=== PATIENT | female | born 1990 | race Caucasian/White ===

== ENCOUNTER 2020-08-30 20:09 | Inpatient (IN) | payer OTHER ==
[~2020-08-30] VITALS: Ht 170.2 cm; Wt 82.1 kg
[~2020-08-30 20:09] MED LIST: LEVAQUIN750 MG PO; NAPROSYN500 MG PO; ZOFRAN4 MG PO
[2020-08-30 21:02] LABS: HEMOGLOBIN 11.3 gm/dl (12.3-15.3); RED BLOOD COUNT 4.01 M/UL (4.00-5.10); WHITE BLOOD COUNT 17.5 K/UL (4.5-11.0)
[2020-08-30 21:15] LABS: BUN/CREATININE RATIO 16 (0-10)
[2020-08-31 05:07] LABS: HEMOGLOBIN 10.6 gm/dl (12.3-15.3); RED BLOOD COUNT 3.72 M/UL (4.00-5.10); WHITE BLOOD COUNT 14.5 K/UL (4.5-11.0)
[2020-08-31 05:35] LABS: BUN/CREATININE RATIO 15 (0-10)
[2020-08-31] MEDS ORDERED: VITAMIN B-121000 MC2 SL (10:12)
[2020-08-31] MEDS ORDERED: OMEGA 3 1,0001 EACH PO (10:12)
[2020-09-01 06:27] LABS: HEMOGLOBIN 11.6 gm/dl (12.3-15.3); RED BLOOD COUNT 4.08 M/UL (4.00-5.10); WHITE BLOOD COUNT 11.5 K/UL (4.5-11.0)
[2020-09-01 07:11] LABS: BUN/CREATININE RATIO 10 (0-10)
[2020-09-03 09:04] LABS: BUN/CREATININE RATIO 11 (0-10)
[2020-09-04 06:22] LABS: HEMOGLOBIN 11.4 gm/dl (12.3-15.3); RED BLOOD COUNT 4.06 M/UL (4.00-5.10); WHITE BLOOD COUNT 9.7 K/UL (4.5-11.0)
[2020-09-04 06:48] LABS: BUN/CREATININE RATIO 16 (0-10)
[2020-09-04] MEDS ORDERED: BACTRIM DS TAB1 EACH PO (12:35)
== END 2020-09-04 14:39 | disposition home or self-care (01) | DRG 581 ==
LOC: ER1 20:09 → MED SURG 4 08-31 02:59 → ZEROF 08-31 02:59 → MED SURG 4 08-31 14:10
PROVIDERS: Emergency Medicine; Internal Medicine; Surgery; ADMIT Internal Medicine
PROC: 0J9G0ZZ Drainage of Right Lower Arm Subcutaneous Tissue and Fascia, Open Approach (ICD-10-PCS; principal; 2020-09-01 11:03)
DX: L03.113 Cellulitis of right upper limb (principal); L02.413 Cutaneous abscess of right upper limb; Z89.221 Acquired absence of right upper limb above elbow; F17.210 Nicotine dependence, cigarettes, uncomplicated; F15.90 Other stimulant use, unspecified, uncomplicated; E83.41 Hypermagnesemia; E87.6 Hypokalemia; D64.89 Other specified anemias; L03.114 Cellulitis of left upper limb
CPT/HCPCS: ECHO; 36415; 71045; 73201; 80048; 80053; 80202; 81001; 83036; 83605; 83735; 84100; 84703; 85025; 85610; 85652; 86140; 87040; 87070; 87077; 87086; 87186; 87205; 93306; 93971; 96365; 96366; 96368; 96376; 99285; C1751; J0171; J1885; J2001; J2250; J2270; J2405; J2543; J2704; J3010; J3370; J7030; J7070; J7120; Q9967; U0002